=== PATIENT | female | born 1960 | race Caucasian/White ===

== ENCOUNTER 2018-12-27 08:21 | Outpatient (RCR) | payer OTHER | END 2019-03-27 | disposition home or self-care (01) | LOC: ONC 08:21 | PROVIDERS: ATTEND Radiology Radiation Oncology | DX: C50.411 Malignant neoplasm of upper-outer quadrant of right female breast (principal); C77.3 Secondary and unspecified malignant neoplasm of axilla and upper limb lymph nodes; I10 Essential (primary) hypertension; Z17.0 Estrogen receptor positive status [ER+]; Z79.899 Other long term (current) drug therapy | CPT/HCPCS: 99205 ==